=== PATIENT | female | born 1985 | race Caucasian/White ===

== ENCOUNTER 2018-12-07 23:30 | Emergency (ER) | payer SELFPAY ==
[~2018-12-07] VITALS: Ht 152.4 cm; Wt 59.0 kg
[~2018-12-07 23:30] MED LIST: IBUP-23 PO; PRENATAL VITAMINS
[2018-12-08] MEDS ORDERED: LORATADINE 10 MG TABLET PO SCH (00:15)
[2018-12-08] MEDS ORDERED: LORATADINE 10 MG TABLET ONE (00:18)
--- NOTE | 2018-12-08 00:21 | NUR ---
Patient discharged to home in stable conditon. Written and verbal after care instructions given. Patient verbalizes understanding of instructions. Pt. d/c w/ prescription per MD order, d/c papers signed, all belongings w/ pt., ID band removed, ambulated off unit w/ steady gait, NAD
== END 2018-12-08 00:23 | disposition home or self-care (01) ==
LOC: ER 23:32
DX: B30.9 Viral conjunctivitis, unspecified (principal); R09.89 Other specified symptoms and signs involving the circulatory and respiratory systems; R06.7 Sneezing; Z88.1 Allergy status to other antibiotic agents; Z90.49 Acquired absence of other specified parts of digestive tract; Z79.1 Long term (current) use of non-steroidal anti-inflammatories (NSAID)
CPT/HCPCS: A4663